=== PATIENT | male | born 1965 | race Caucasian/White ===

== ENCOUNTER 2017-01-31 10:57 | Emergency (ER) | payer SELFPAY ==
[~2017-01-31] VITALS: Ht 177 cm; Wt 79.4 kg
[~2017-01-31 10:57] MED LIST: CYCLOBENZAPRINE10 MG PO; FLEXERIL5 MG PO; IBU800 MG PO; LISINOPRIL20 MG PO; MEDROL DOSEPAK4 MG PO; PREDNISONE20 MG PO; TRAMADOL HCL50 MG PO
[2017-01-31] MEDS ORDERED: NYSTATIN CREAM15 GM T (11:27)
== END 2017-01-31 12:04 | disposition home or self-care (01) ==
LOC: ED 10:57
DX: B35.9 Dermatophytosis, unspecified (principal); F17.200 Nicotine dependence, unspecified, uncomplicated

== ENCOUNTER 2022-02-28 02:24 | Emergency (ER) | payer SELFPAY ==
[~2022-02-28] VITALS: Ht 177.8 cm; Wt 79.4 kg
[~2022-02-28 02:24] MED LIST changes: +NYSTATIN CREAM15 GM T
[2022-02-28 03:00] LABS: BASO # 0.1 10*3/uL (0.0-0.1); BASO % 0.9 % (0.0-1.0); EOS # 0.5 10*3/uL (0.0-0.4); EOS % 7.3 % (1.0-4.0); HEMATOCRIT 46.9 % (42.0-52.0); LYMPH # 2.5 10*3/uL (1.3-4.4); LYMPH % 37.6 % (27.0-41.0); MEAN CELL VOLUME 93.1 fl (80.0-94.0); MEAN CORPUSCULAR HGB CONC 33.3 g/dl (33.0-37.0); MEAN PLATELET VOLUME 9.5 fl (9.6-12.3); MONO # 0.6 10*3/uL (0.1-1.0); MONO % 8.2 % (3.0-9.0); NEUT # 3.1 10*3/uL (2.3-7.9); NEUT % 45.7 % (47.0-73.0); PLATELET COUNT AUTOMATED 215 10*3/uL (130-400); RED BLOOD COUNT 5.04 10*6/uL (4.50-5.90); RED CELL DISTRI WIDTH 12.5 % (0-14.5); WHITE BLOOD COUNT 6.7 10*3/uL (4.8-10.8)
[2022-02-28 03:49] LABS: ALKALINE PHOSPHATASE 53 U/L (45-117); BUN 13 mg/dl (7-24); CHLORIDE 106 mmol/L (98-107); POTASSIUM 3.8 mmol/L (3.5-5.1); SGOT/AST 23 IU/L (3-35); SGPT/ALT 24 U/L (12-78); SODIUM 139 mmol/L (136-145); TOTAL PROTEIN 6.8 gm/dL (6.4-8.2)
[2022-02-28] MEDS ORDERED: NAPROXEN250 MG PO (06:16)
== END 2022-02-28 06:44 | disposition home or self-care (01) ==
LOC: ED 02:24
PROVIDERS: Internal Medicine
DX: R07.89 Other chest pain (principal); Z79.899 Other long term (current) drug therapy

== ENCOUNTER 2024-07-25 08:07 | Emergency (ER) | payer BC ==
[~2024-07-25] VITALS: Ht 177.8 cm; Wt 80.7 kg
[~2024-07-25 08:07] MED LIST changes: +NAPROXEN250 MG PO
[2024-07-25] MEDS ORDERED: AMOX-CLAV 875-1 EACH PO (08:27)
== END 2024-07-25 08:36 | disposition home or self-care (01) ==
LOC: ED 08:07
DX: K04.7 Periapical abscess without sinus (principal); R22.0 Localized swelling, mass and lump, head; I10 Essential (primary) hypertension; F17.290 Nicotine dependence, other tobacco product, uncomplicated

== ENCOUNTER 2025-01-20 07:00 | Emergency (ER) | payer BC ==
[~2025-01-20] VITALS: Wt 81.6 kg
[~2025-01-20 07:00] MED LIST changes: +AMOX-CLAV 875-1 EACH PO
[2025-01-20] MEDS ORDERED: TRELEGY ELLIPT1 EACH IH (07:09)
[2025-01-20] MEDS ORDERED: METHOCARBAMOL1000 MG PO (07:30)
[2025-01-20] MEDS ORDERED: IBUPROFEN 800 MG TAB PO ONE (07:30)
[2025-01-20] MEDS ORDERED: IBU800 M2 PO (07:30)
[2025-01-20] MEDS ORDERED: METHOCARBAMOL 500 MG TAB PO ONE (07:30)
== END 2025-01-20 07:36 | disposition home or self-care (01) ==
LOC: ED 07:00
DX: M62.830 Muscle spasm of back (principal); M54.50 Low back pain, unspecified; Z79.899 Other long term (current) drug therapy; X50.0XXA Overexertion from strenuous movement or load, initial encounter; Y93.89 Activity, other specified; Y92.89 Other specified places as the place of occurrence of the external cause; Y99.8 Other external cause status

== ENCOUNTER 2025-06-02 15:43 | Emergency (ER) | payer BC ==
[~2025-06-02] VITALS: Ht 177.8 cm; Wt 79.4 kg
[~2025-06-02 15:43] MED LIST changes: +IBU800 M2 PO; +METHOCARBAMOL1000 MG PO; +TRELEGY ELLIPT1 EACH IH
[2025-06-02] MEDS ORDERED: Albuterol Sulf/Ipratropium 3 ML VIAL NEB ONE (16:25)
[2025-06-02] MEDS ORDERED: AZITHROMYCIN 250 MG TAB PO ONE (16:30)
[2025-06-02 16:39] LABS: BASO # 0.1 10*3/uL (0.0-0.1); BASO % 1.1 % (0.0-1.0); EOS # 0.4 10*3/uL (0.0-0.4); EOS % 8.8 % (1.0-4.0); MEAN CELL VOLUME 93.7 fl (80.0-94.0); MEAN CORPUSCULAR HGB 31.2 pg (27.0-31.0); MEAN PLATELET VOLUME 8.9 fl (9.6-12.3); MONO # 0.6 10*3/uL (0.1-1.0); MONO % 13.2 % (3.0-9.0); NEUT # 2.0 10*3/uL (2.3-7.9); NEUT % 44.2 % (47.0-73.0); NUCLEATED RED BLOOD CELL 0.0 % (0.0-0.0); NUCLEATED RED BLOOD CELL 0.0 10*3/uL (0.0-0.0); PLATELET COUNT AUTOMATED 152 10*3/uL (130-400); RED CELL DISTRI WIDTH 12.1 % (0-14.5)
[2025-06-02 16:57] LABS: BUN 10 mg/dl (9-23)
[2025-06-02] MEDS ORDERED: PREDNISONE20 M1 PO (17:44)
[2025-06-02] MEDS ORDERED: AVPAK AZITHROM250 M1 PO (17:44)
== END 2025-06-02 18:04 | disposition home or self-care (01) ==
LOC: ED 15:43
PROVIDERS: Emergency Medicine
DX: J44.1 Chronic obstructive pulmonary disease with (acute) exacerbation (principal); I10 Essential (primary) hypertension